=== PATIENT | male | born 1950 | race Two or more races ===

== ENCOUNTER 2017-09-24 11:30 | Emergency (ER) | payer MEDICARE, OTHER, SELFPAY ==
[~2017-09-24] VITALS: Ht 162.6 cm; Wt 68.1 kg
[2017-09-24 11:35] VITALS: BP 132/82
== END 2017-09-24 12:53 | disposition home or self-care (01) ==
LOC: ED 12:47
DX: S22.42XA Multiple fractures of ribs, left side, initial encounter for closed fracture (principal); X58.XXXA Exposure to other specified factors, initial encounter; Y93.89 Activity, other specified; Y92.89 Other specified places as the place of occurrence of the external cause; Y99.8 Other external cause status
CPT/HCPCS: 99284